=== PATIENT | female | born 1935 | race Caucasian/White ===

== ENCOUNTER 2018-12-20 10:10 | Observation (INO) ==
[~2018-12-20 10:10] MED LIST: DIPRIVAN 1% ONE; FENTANYL ONE; ROBINUL ONE; XYLOCAINE-MPF 2% ONE
[2018-12-20] MEDS ORDERED: NORCURON ONE (10:14)
[2018-12-20] MEDS ORDERED: QUELICIN (DOSE) ONE (10:14)
[2018-12-20] MEDS ORDERED: STERILE WATER INJ. ONE (10:14)
[2018-12-20] MEDS ORDERED: ROBINUL ONE ×2 (10:15→12:36)
[2018-12-20] MEDS ORDERED: NEO-SYNEPHRINE ONE (10:17)
[2018-12-20] MEDS ORDERED: SODIUM CHLORIDE 0.9% 10 ML ONE ×2 (10:17→10:18)
[2018-12-20] MEDS ORDERED: LR 1,000 ML ONE ×3 (10:31→13:28)
[2018-12-20] MEDS ORDERED: PEPCID ONE (10:31)
[2018-12-20] MEDS ORDERED: KEFZOL 1 GM/D5W 1 GM/50 ML IVPB ONE (10:31)
[2018-12-20] MEDS ORDERED: REGLAN ONE (10:31)
[2018-12-20] MEDS ORDERED: SENSORCAINE-MPF 0.5%/EPI 1:200,000 ONE (11:36)
[2018-12-20] MEDS ORDERED: SODIUM CHLORIDE 0.9% ONE (11:36)
[2018-12-20 11:37] LABS: INR 1.01; PROTIME 14.1 Seconds (11.0-16.0)
[2018-12-20] MEDS ORDERED: NIMBEX ONE (12:03)
[2018-12-20] MEDS ORDERED: DIPRIVAN 1% ONE (12:24)
[2018-12-20] MEDS ORDERED: NEOSTIGMINE ONE (12:36)
[2018-12-20] MEDS ORDERED: ZOFRAN ONE (12:36)
[2018-12-20] MEDS ORDERED: DECADRON ONE (12:36)
--- NOTE | 2018-12-20 13:16 | Diag Imaging Result Doc PS360 ---
EXAM: OPERATIVE CHOLANGIOGRAM HISTORY: GALLBLADDER DX TECHNIQUE: Intraoperative cholangiogram, two views COMPARISON: None. FINDINGS: Contrast fills the common bile duct. No stone or stricture. There is a small amount of extravasation at the injection site. IMPRESSION: No stone or stricture. Electronically signed by Jose Medrano 12/20/2018 1:14 PM
--- NOTE | 2018-12-20 13:40 | OPERATIVE NOTE ---
PROCEDURE DATE: 12/20/2018 PREOPERATIVE DIAGNOSIS: Chronic cholecystitis with cholelithiasis. POSTOPERATIVE DIAGNOSIS: Chronic cholecystitis with cholelithiasis. PRINCIPAL PROCEDURE: Laparoscopic cholecystectomy with intraoperative cholangiogram. SURGEON: Christel Aguirre MD. ANESTHESIA: General in addition to local anesthetic. ESTIMATED BLOOD LOSS: 25 mL. DRAINS: None. INDICATIONS: Clemencia Mckeon is an 83-year-old, white female patient Dr. James Fry who has been experiencing abdominal discomfort especially in the upper abdomen right side. Ultrasound documented sludge. It was felt that her gallbladder was symptomatic, and cholecystectomy was recommended. FINDINGS: She had a floppy gallbladder that was chronically inflamed. She had small black stones within it. Her liver appeared to be healthy as did the surface of her bowel. No other intra- abdominal pathology was noted. We did do an intraoperative cholangiogram, which showed free flow of the dye into the duodenum. No evidence of extrahepatic stones or obstruction. No extrahepatic dilatation. DESCRIPTION OF PROCEDURE: The patient was brought to the operating room, placed supine, received general anesthesia, and was intubated. Her abdomen was prepped and draped in a sterile field. I made a small incision below the umbilicus with a 15 blade scalpel. Veress needle was introduced through this incision into the abdomen. Pneumoperitoneum was established. Veress needle was removed. I placed an 11 mm trocar through this incision into the abdomen. The camera was placed through this port, and the abdomen was explored for injury, there was none. Three other trocars were placed along the right costal margin under direct vision of the camera. We placed 11 mm trocar just to the right of the midline and two 5 mm trocars in our midclavicular and anterior axillary lines. Through our most lateral port, the gallbladder was grasped and retracted superiorly along with the right lobe of the liver. Another grasper was used to grab the body of the gallbladder, and the triangle of [place] was bluntly dissected. We identified the cystic artery. A clip was placed distally and 2 proximally. It was divided using hook scissors. The cystic duct was dissected along its length. I placed a clip at the cystic duct gallbladder junction. I made a small incision in the cystic duct using hook scissors and a taut intraoperative cholangiogram catheter was used to perform the cholangiogram with the findings above. Once cholangiogram was completed, we removed the catheter and 2 clips were placed proximally on the cystic duct. We divided the cystic duct between clips using hook scissors. The spatula cautery was used to remove the gallbladder from the liver bed. There was no spillage of stones or bile during this procedure, and I removed the gallbladder through our umbilical incision. I placed the trocar back through this incision, and the area of operation was thoroughly inspected, irrigated, and the irrigation was removed with suction. There was no evidence of ongoing bleeding or bile leak. No drains were left. All trocars removed under direct vision of the camera. The pneumoperitoneum was allowed to dissipate. I used a [id number] 2- 0 Vicryl stitch to reapproximate the fascia below the umbilicus. All skin was closed with 4-0 Monocryl subcuticular stitches. Steri-Strips were applied. She tolerated the procedure well with plans for her to go the recovery room, and then be admitted overnight. cc: MD James Prajapati MD
[2018-12-20] MEDS ORDERED: MORPHINE ONE (14:24)
[2018-12-20] MEDS ORDERED: XYLOCAINE-MPF 2% ONE (14:26)
[2018-12-20] MEDS ORDERED: LR 1,000 ML IV SCH (17:45)
[2018-12-20] MEDS ORDERED: NORCO-7.5 PO PRN (17:45)
[2018-12-20] MEDS ORDERED: ZOFRAN IV PRN (17:45)
[2018-12-20] MEDS ORDERED: LIPITOR PO SCH (21:00)
[2018-12-20] MEDS ORDERED: CYMBALTA PO SCH (21:00)
[2018-12-20] MEDS: PERIDEX MT SCH (22:42)
[2018-12-20] MEDS: NORVASC PO SCH (22:42)
[2018-12-21 07:48] VITALS: BP 116/42
[2018-12-21] MEDS ORDERED: SYNTHROID PO SCH (09:00)
[2018-12-21] MEDS ORDERED: PREVACID SOLUTAB PO SCH (09:00)
[2018-12-21] MEDS ORDERED: TOPROL XL PO SCH (09:00)
[2018-12-21] MEDS: PERIDEX MT SCH (10:27)
[2018-12-21] MEDS: NORVASC PO SCH (10:28)
== END 2018-12-21 10:56 | disposition home or self-care (01) ==
LOC: OR 10:10 → 4N 13:25 → INTOOBSV 13:25
PROVIDERS: ADMIT Surgery; ATTEND Surgery
CPT/HCPCS: 74300; 85610; 88304; 94799; A9270; C1751; J0330; J0690; J1100; J2270; J2370; J2405; J3010; J7120; Q9966; Q9967

== ENCOUNTER 2019-01-01 11:35 | Inpatient (IN) ==
[2019-01-01] MEDS ORDERED: TYLENOL PO PRN (13:43)
[2019-01-01] MEDS ORDERED: ZOFRAN IV PRN (13:43)
[2019-01-01] MEDS ORDERED: NS 1,000 ML IV SCH (13:45)
[2019-01-01] MEDS: MAXIPIME 1 GM in NS 50 ML IV SCH (14:31)
[2019-01-01 17:01] LABS: BASO# 0.03 X1000 (0.0-0.2); BASO% 0.4 % (0.0-0.8); EOS# 0.13 X1000 (0.0-0.7); EOS% 1.8 % (0.0-10.0); HEMATOCRIT 32.6 % (37.0-47.0); HEMOGLOBIN 10.4 g/dL (12.0-16.0); IMM GRAN# 0.13 X1000 (0.0-0.04); IMM GRAN% 1.8 % (0.0-0.5); LYMPH# 1.75 X1000 (1.2-3.4); LYMPH% 23.9 % (20.5-51.1); MCH 32.5 PG (27-31); MCHC 31.9 g/dL (33-37); MCV 101.9 FL (81-99); MONO% 13.7 % (1.7-9.3); MPV 9.6 FL (7.4-10.4); NEUT# 4.27 X1000 (1.4-6.5); NEUT% 58.4 % (42.2-75.2); PLT 514 X1000 (130-400); RDW 18.1 % (11.5-14.5); WBC 7.31 X1000 (4.8-10.8)
[2019-01-01 17:17] LABS: EOS 2 % (1-10); LYMPHS 24 % (21-51); MONO 14 % (1-9); SEGS 56 % (42-75); STOMATOCYTES 1+
[2019-01-01 17:18] LABS: OVALOCYTES 1+
[2019-01-01 17:21] LABS: ALB/GLOB RATIO 1.7; ALBUMIN 4.3 g/dL (3.5-5.0); CALCIUM 9.5 mg/dL (8.8-10.2); CREATININE 1.2 mg/dL (0.5-0.9); POTASSIUM 4.8 mmol/L (3.5-5.1); TOTAL BILIRUBIN 0.39 mg/dL (0.20-1.00); TOTAL PROTEIN 6.9 g/dL (6.3-8.3)
[2019-01-01 17:45] LABS: URINE SOURCE CLEAN CATCH
[2019-01-01 17:48] LABS: BILIRUBIN URINE NEGATIVE (NEGATIVE); BLOOD URINE NEGATIVE (NEGATIVE); COLOR STRAW; GLUCOSE URINE NEGATIVE (NEGATIVE); KETONE URINE NEGATIVE (NEGATIVE); LEUKOCYTES URINE NEGATIVE (NEGATIVE); NITRITE URINE NEGATIVE (NEGATIVE); PH URINE 6.5; PROTEIN URINE NEGATIVE (NEGATIVE); TURBIDITY URINE CLEAR (CLEAR); UROBILINOGEN URINE NORMAL (NORMAL)
[2019-01-01 17:50] LABS: UR EPITHELIAL CELLS <10 /HPF (<10); URINE BACTERIA NEGATIVE /HPF; URINE RBC <10 /HPF (<10); URINE WBC <10 /HPF (<10)
[2019-01-01] MEDS ORDERED: NORVASC PO PRN (19:21)
[2019-01-01] MEDS: COUMADIN PO SCH (20:52)
[2019-01-01] MEDS: LIPITOR PO SCH (20:52)
[2019-01-01] MEDS ORDERED: CYMBALTA PO SCH (21:00)
[2019-01-01] MEDS: BETAPACE PO SCH (21:30)
[2019-01-01] MEDS: CYMBALTA PO SCH (21:30)
--- NOTE | 2019-01-01 21:58 | HISTORY AND PHYSICAL ---
PRIMARY CARE PHYSICIAN: Dr. James Fry. CHIEF COMPLAINT: Refractory urinary tract infection. HISTORY OF PRESENT ILLNESS: An 83-year-old white female, with a complicated past medical history, who presents for evaluation of above-mentioned symptoms. Current history of present illness began on Tuesday. At that time, patient presented to my office with urinary frequency and dysuria. A urinalysis was performed. Treatment with Keflex therapy was initiated. Unfortunately, the patient's cultures returned positive for a resistant Pseudomonas. On Tuesday evening, patient was contacted. The only oral antibiotic with adequate sensitivity was levofloxacin. Unfortunately, this was not an option secondary to her current treatment with sotalol. Arrangements were made for her to go to the ER every 12 hours for cefepime therapy. The patient was treated on Tuesday evening and Tuesday morning. Unfortunately, on Tuesday evening, the patient did not receive a dosage. She received 2 doses yesterday. This morning, patient states that she is having difficulty getting to and from the emergency department 12 hours apart. She also is having difficulty maintaining adequate IV sites. The patient contacted our office with further concern. For this reason, the patient will be admitted to the hospital for further IV antibiotic intervention. At the current time, patient denies nausea, vomiting, shortness of breath, chest pain, dysuria, hematuria, pyuria, and GI disturbance. She does note having weakness. PAST MEDICAL HISTORY: 1. Abnormal electrocardiogram with first-degree AV block and intermittent in atrial fibrillation. 2. Anemia. 3. Anxiety. 4. Mild coronary artery disease. 5. History of a lumbar lipoma. 6. Fibrocystic breast disease. 7. Cataracts. 8. Depression. 9. History of multiple ear surgeries. 10. Reflux disease. 11. Hypertension. 12. Fatigue. 13. Incontinence. 14. History of cholelithiasis, status post laparoscopic cholecystectomy. 15. Hyperlipidemia. 16. Hypothyroidism. 17. Irritable bowel syndrome. 18. Anticoagulation. 19. Low back pain. 20. History of a left lower extremity hematoma after total knee arthroplasty in 2014. 21. Obstructive sleep apnea. 22. Osteoarthritis. 23. Paroxysmal atrial fibrillation. 24. Pulmonary hypertension. 25. History of a superficial basal cell carcinoma. 26. History of a solitary pulmonary nodule with benign appearance. 27. Insomnia. 28. History of appendectomy in 1952. 29. History of deep venous thrombosis. CURRENT MEDICATIONS: 1. Acetaminophen 325 mg 2 tablets every 4 hours as needed. 2. Amlodipine 2.5 mg twice daily as needed for systolic blood pressure greater than 140. 3. Atorvastatin 20 mg at bedtime. 4. Calcium plus vitamin D daily. 5. Centrum Silver daily. 6. Coumadin 5 mg on Tuesday, Tuesday, Tuesday, and Tuesday evenings, and 7.5 mg on Tuesday, , and Tuesday evenings. 7. Vitamin B12 1000 mcg IM monthly. 8. Cymbalta 60 mg twice daily. 9. Folic acid 1 mg daily. 10. Lasix 20 mg as needed. 11. Levothyroxine 100 mcg daily. 12. MiraLAX as needed. 13. Pantoprazole 40 mg daily. 14. Sotalol 80 mg 1/2 tablet twice daily. 15. Spironolactone 25 mg 1/2 tablet daily. 16. Toviaz 4 mg as needed. ALLERGIES: Patient states she is allergic to lisinopril which causes hyponatremia, Lovenox which causes excessive bleeding, and sulfa which causes swelling. SOCIAL HISTORY: The patient denies tobacco use. She occasionally uses alcohol. She denies illicit drug use. She is retired from [employer]. She enjoys yard work. She exercises intermittently. FAMILY HISTORY: Patient's father passed at age 70 secondary to complications of leukemia. Patient's mother passed at age 97 secondary to complications of a traumatic fall with an intracranial bleed. REVIEW OF SYSTEMS: A 12 point review of systems was performed. Pertinent positives and negatives are noted in the History of Present Illness.. PHYSICAL EXAMINATION: VITAL SIGNS: Temperature 98.2 degrees, heart rate 72, respirations 18, blood pressure is 171/68. GENERAL: Well nourished, well developed, no acute distress. HEENT: Normocephalic, atraumatic. Pupils equal, round, reactive to light. Extraocular muscles intact. Sclerae anicteric. [place] conjunctivae. Oral and nasopharynx clear without exudate. NECK: Supple. No lymphadenopathy. No thyromegaly. No bruits auscultated. CARDIOVASCULAR: Regular rate and rhythm. No significant murmurs, rubs, or gallops. PULMONARY: Clear to auscultation bilaterally. ABDOMEN: Soft, nontender, nondistended. Positive bowel sounds. EXTREMITIES: Moves all extremities well. No significant clubbing, cyanosis, or edema. NEUROLOGIC: Cranial nerves 2 through 12 grossly intact. Motor and sensory grossly intact. PSYCHOLOGIC: Examination is appropriate. LABORATORY DATA: White blood cell count 7.31, hemoglobin 10.4, hematocrit 32.6, platelet count 514,000. Sodium 141, potassium 4.8, chloride 103, bicarb 26, BUN 22, creatinine 1.2, glucose 88, calcium 9.5, total bilirubin 0.39, total protein 6.9, albumin 4.3, alkaline phosphatase 47, AST 20, ALT 13. Urinalysis returned negative. ASSESSMENT AND PLAN: An 83-year-old white female, with past medical history as noted, who presents for evaluation of outpatient failure to manage resistant urinary tract infection. The patient will be admitted to the hospital for full evaluation and management. 1. Admit to General Medicine. 2. Urinary tract infection. As above, patient's recent culture grew a resistant pseudomonas. Unfortunately, the only oral medication given an option was levofloxacin. The patient is unable to take this secondary to interaction with sotalol. For now, we will continue cefepime therapy. We will discuss duration of therapy with Dr. Clemons. We will tentatively treat for 7 days. 3. Hypertension. We will continue patient on her home regimen. 4. Anxiety/depression. We will continue patient on Cymbalta therapy. 5. Reflux disease. We will continue pantoprazole therapy. 6. Hyperlipidemia. We will continue atorvastatin therapy. 7. Hypothyroidism. We will continue patient on replacement. 8. Anticoagulation. We will check an INR. 9. Fluid, electrolytes, nutrition. We will monitor electrolytes. Normal saline at KVO. Regular diet. 10. Prophylaxis. Patient will be continued on Coumadin therapy. cc: James Fry MD
[2019-01-01 22:03] LABS: INR 2.43; PROTIME 28.2 Seconds (11.0-16.0)
[2019-01-02] MEDS: MAXIPIME 1 GM in NS 50 ML IV SCH ×3 (03:48→22:18)
[2019-01-02] MEDS: PROTONIX PO SCH (06:07)
[2019-01-02] MEDS: SYNTHROID PO SCH (06:08)
[2019-01-02] MEDS: ALDACTONE PO SCH (09:22)
[2019-01-02] MEDS: BETAPACE PO SCH ×2 (09:23→22:19)
[2019-01-02] MEDS: CYMBALTA PO SCH ×2 (09:23→22:19)
[2019-01-02] MEDS: FOLIC ACID PO SCH (09:24)
--- NOTE | 2019-01-02 19:59 | PROGRESS NOTE ---
DATE: 01/02/2019 SUBJECTIVE: Upon arrival this morning, patient stated she felt reasonably well. Thus far, the patient has tolerated IV intervention for her urinary tract infection. Through the day, patient states she did reasonably well. Her p.o. intake has been adequate. She has been up in chair. This evening, patient states she continues to feel reasonably well. I discussed case with Dr. Clemons. Five days of IV antibiotics were recommended. OBJECTIVE: T-max 98 degrees, heart rate 68 to 75, respirations 16 to 18, blood pressure 137 to 171 over 64 to 69.General: Well nourished, well developed, no acute distress. Cardiovascular: Regular rate and rhythm. No significant murmurs, rubs, or gallops. Pulmonary: Clear to auscultation bilaterally. Abdomen: Soft, nontender, nondistended. Positive bowel sounds. Extremities: Moves all extremities well. No significant clubbing, cyanosis, or edema. Dermatologic: Evaluation reveals no evidence of rash. LABORATORY DATA: None. ASSESSMENT AND PLAN: 1. Urinary tract infection-culture grew Pseudomonas. Unfortunately, no oral antibiotics were an option. We will continue patient on cefepime therapy for a total of 5 days. 2. Hypertension-we will continue patient on her home regimen. Blood pressures are reasonably controlled. 3. Anxiety/depression-symptoms are reasonably controlled with Cymbalta therapy. 4. Reflux disease-we will continue patient on pantoprazole therapy. 5. Hyperlipidemia-patient is tolerating atorvastatin therapy. This will be continued. 6. Hypothyroidism-we will continue patient on replacement. 7. Anticoagulation-patient is therapeutic with Coumadin therapy. 8. Disposition-at this point, patient continues to require [facility] care in a hospital setting. We will plan discharge home once appropriate. cc: James Fry MD
[2019-01-02] MEDS ORDERED: COUMADIN PO SCH (21:00)
[2019-01-02] MEDS: LIPITOR PO SCH (22:20)
[2019-01-03] MEDS: MAXIPIME 1 GM in NS 50 ML IV SCH ×3 (05:53→20:43)
[2019-01-03] MEDS: PROTONIX PO SCH ×2 (05:53→06:37)
[2019-01-03] MEDS: SYNTHROID PO SCH ×2 (05:54→06:37)
[2019-01-03] MEDS: ALDACTONE PO SCH (09:13)
[2019-01-03] MEDS: CYMBALTA PO SCH ×2 (09:14→20:44)
[2019-01-03] MEDS: FOLIC ACID PO SCH (09:14)
[2019-01-03] MEDS: BETAPACE PO SCH ×2 (09:15→20:44)
[2019-01-03] MEDS: COUMADIN PO SCH (20:44)
[2019-01-03] MEDS: LIPITOR PO SCH (20:44)
--- NOTE | 2019-01-03 20:48 | PROGRESS NOTE ---
DATE: 01/03/2019 SUBJECTIVE: Upon my arrival this morning, the patient was resting comfortably. Thus far, the patient has tolerated IV cefepime quite well. This evening, the patient continues to feel well. She is tolerating p.o. She denies nausea, vomiting, shortness of breath, or chest discomfort. OBJECTIVE: Vital signs: T-max 98 degrees, heart rate 70 to 75, respirations 16 to 17, blood pressure 126 to 152 over 54 to 65. General: Well nourished, well developed, no acute distress. Cardiovascular: Regular rate and rhythm. No significant murmurs, rubs, or gallops. Pulmonary: Clear to auscultation bilaterally. Abdomen: Soft, nontender, nondistended. Positive bowel sounds. Extremities: Moves all extremities well. No significant clubbing, cyanosis, or edema. Dermatologic: No evidence of rash. LABORATORY DATA: None. ASSESSMENT AND PLAN: 1. Urinary tract infection. -- As described previously, culture returned positive for Pseudomonas. The patient is currently being treated with cefepime for a total of 5 days. She will complete this tomorrow morning. If the patient continues to well, we will plan discharge at that time. 2. Hypertension. -- The patient's blood pressure is reasonably controlled on her home regimen. 3. Anxiety/depression. -- We will continue Cymbalta therapy as symptoms are controlled. 4. Reflux disease. -- We will continue the patient on pantoprazole therapy as symptoms are controlled. 5. Hyperlipidemia. -- We will continue home dose of atorvastatin therapy. 6. Hypothyroidism. -- We will continue the patient on replacement. 7. Anticoagulation. -- The patient was therapeutic on Coumadin as of last lab draw. We will remain aware. 8. Disposition. -- At this point, the patient continues to require [facility] care in a hospital setting. We will plan discharge home once appropriate. cc: James Fry MD
[2019-01-04] MEDS: MAXIPIME 1 GM in NS 50 ML IV SCH ×2 (04:56→12:44)
[2019-01-04] MEDS: SYNTHROID PO SCH (06:35)
[2019-01-04] MEDS: PROTONIX PO SCH (06:35)
[2019-01-04] MEDS: FOLIC ACID PO SCH (09:00)
[2019-01-04] MEDS: CYMBALTA PO SCH (09:00)
[2019-01-04] MEDS: ALDACTONE PO SCH (09:00)
[2019-01-04] MEDS: BETAPACE PO SCH (09:00)
[2019-01-04 13:06] VITALS: BP 110/54
--- NOTE | 2019-01-05 20:10 | DISCHARGE SUMMARY ---
ADMISSION DATE: 01/01/2019 DISCHARGE DATE: 01/04/2019 ADMISSION DIAGNOSIS: Refractory urinary tract infection. DISCHARGE DIAGNOSES: 1. Urinary tract infection, secondary to Pseudomonas. 2. Hypertension, present on arrival. 3. Anxiety/depression, present on arrival. 4. Reflux disease, present on arrival. 5. Hyperlipidemia, present on arrival. 6. Hypothyroidism, present on arrival. 7. Anticoagulation, present on arrival. CONSULTATIONS: None. PROCEDURES: None. HISTORY AND PHYSICAL EXAMINATION: See admit note. PHYSICAL EXAMINATION PRIOR TO DISCHARGE: Vital Signs: Temperature 97.8, heart rate 72, respirations 18, blood pressure is 110/54. General: Well nourished, well developed, no acute distress. Cardiovascular: Regular rate and rhythm. No significant murmurs, rubs, or gallops. Pulmonary: Clear to auscultation bilaterally. Abdomen: Soft, nontender, nondistended. Positive bowel sounds. Extremities: Moves all extremities well. No significant clubbing, cyanosis, or edema. Dermatologic: Evaluation reveals no evidence of rash. LABORATORY DATA: Prior to discharge: None. HOSPITAL COURSE: Patient was admitted as per history and physical examination. Hospital course per condition is as follows: 1. Urinary tract infection: Upon admission, the patient had a positive urine culture for Pseudomonas. The only oral antibiotic acceptable for treatment was levofloxacin. Unfortunately, this interacted with her sotalol. The patient was initially treated as an outpatient with cefepime q.12 hours. Unfortunately, this proved to be too difficult. The patient was placed as an inpatient. Cefepime q.8 hours was initiated. Patient tolerated this well while hospitalized. At time of discharge, she was asymptomatic. 2. Hypertension: Patient was maintained on her home medications while hospitalized. Blood pressures remained controlled. 3. Anxiety/depression: Patient was continued on Cymbalta therapy. She had no exacerbations while hospitalized. 4. Reflux disease: Patient was continued on pantoprazole therapy. Symptoms remained controlled. 5. Hyperlipidemia: The patient was continued on atorvastatin therapy. 6. Hypothyroidism: Patient was continued on replacement while hospitalized. She denied symptoms consistent with hyper- or hypothyroidism. 7. Anticoagulation: Patient was continued on Coumadin therapy while hospitalized. DISCHARGE CONDITION: Good. DISPOSITION: Discharged to home. MEDICATIONS: 1. Sotalol 40 mg twice daily. 2. Coumadin 5 mg nightly on Tuesday, Tuesday, Tuesday, and Tuesday, and 7.5 mg on Tuesday, , and Tuesday. 3. Duloxetine 60 mg twice daily. 4. Folic acid 1 mg daily. 5. Tylenol 650 mg every 4 hours as needed. 6. Spironolactone 12.5 mg daily. 7. Pantoprazole 40 mg daily. 8. Levothyroxine 100 mcg daily. 9. Atorvastatin 20 mg at bedtime. 10. Amlodipine 2.5 mg twice daily as needed for systolic blood pressure greater than 140. FOLLOWUP: Patient is to follow up with me in approximately 1 to 2 weeks. cc: James Fry MD
== END 2019-01-04 14:11 | disposition home or self-care (01) | DRG 690 ==
LOC: DIRADM 11:35 → 3N 13:07
PROVIDERS: ADMIT Internal Medicine; ATTEND Internal Medicine
CPT/HCPCS: 80053; 81001; 85025; 85610; 96365; A9270; J0692; J7030

== ENCOUNTER 2019-07-25 13:03 | Inpatient (IN) ==
[2019-07-25] MEDS ORDERED: NORVASC PO PRN (13:38)
[2019-07-25] MEDS ORDERED: MAXIPIME 2 GM in NS 100 ML IV SCH ×2 (13:38→13:45)
[2019-07-25] MEDS: NS 1,000 ML IV SCH (14:17)
[2019-07-25 14:30] LABS: INR 2.7; PROTIME 29.4 Seconds (11.0-16.0)
[2019-07-25 14:33] LABS: BASO# 0.02 X1000 (0.0-0.2); BASO% 0.3 % (0.0-0.8); EOS# 0.07 X1000 (0.0-0.7); EOS% 1.1 % (0.0-10.0); HEMATOCRIT 31.9 % (37.0-47.0); HEMOGLOBIN 10.1 g/dL (12.0-16.0); IMM GRAN# 0.09 X1000 (0.0-0.04); IMM GRAN% 1.4 % (0.0-0.5); LYMPH# 1.47 X1000 (1.2-3.4); LYMPH% 22.1 % (20.5-51.1); MCHC 31.7 g/dL (33-37); MCV 104.2 FL (81-99); MONO# 0.67 X1000 (0.11-0.59); MONO% 10.1 % (1.7-9.3); MPV 9.3 FL (7.4-10.4); NEUT# 4.33 X1000 (1.4-6.5); PLT 525 X1000 (130-400); RBC 3.06 XMIL (4.2-5.4); RDW 18.6 % (11.5-14.5); WBC 6.65 X1000 (4.8-10.8)
[2019-07-25 14:47] LABS: ALB/GLOB RATIO 1.8; ALBUMIN 4.2 g/dL (3.5-5.0); CALCIUM 9.5 mg/dL (8.8-10.2); CREATININE 1.3 mg/dL (0.5-0.9); POTASSIUM 4.4 mmol/L (3.5-5.1); TOTAL BILIRUBIN 0.68 mg/dL (0.20-1.00); TOTAL PROTEIN 6.5 g/dL (6.3-8.3)
[2019-07-25 15:00] LABS: ANISOCYTOSIS 2+; LYMPHS 28 % (21-51); MONO 6 % (1-9); SEGS 66 % (42-75)
[2019-07-25 16:38] LABS: URINE SOURCE CLEAN CATCH
[2019-07-25 16:48] LABS: BILIRUBIN URINE NEGATIVE (NEGATIVE); BLOOD URINE NEGATIVE (NEGATIVE); COLOR YELLOW; GLUCOSE URINE NEGATIVE (NEGATIVE); KETONE URINE NEGATIVE (NEGATIVE); LEUKOCYTES URINE NEGATIVE (NEGATIVE); NITRITE URINE NEGATIVE (NEGATIVE); PH URINE 6.5; PROTEIN URINE NEGATIVE (NEGATIVE); SP GRAVITY URINE 1.013; TURBIDITY URINE CLEAR (CLEAR); UROBILINOGEN URINE NORMAL (NORMAL)
[2019-07-25 16:51] LABS: UR EPITHELIAL CELLS <10 /HPF (<10); URINE BACTERIA NEGATIVE /HPF; URINE RBC <10 /HPF (<10); URINE WBC <10 /HPF (<10)
[2019-07-25] MEDS: PRISTIQ ER PO SCH (17:20)
[2019-07-25] MEDS: FOLIC ACID PO SCH (17:20)
[2019-07-25] MEDS: TYLENOL PO PRN ×2 (17:38→22:32)
--- NOTE | 2019-07-25 18:49 | HISTORY AND PHYSICAL ---
PRIMARY CARE PHYSICIAN: Dr. James Fry CHIEF COMPLAINT: Fatigue, nausea, vomiting. HISTORY OF PRESENT ILLNESS: An 84-year-old, white female, with a very complicated past medical history, presents for evaluation of above-mentioned symptoms. Pertinent history of present illness began on July 09. At that time, patient developed dysuria while on vacation. Unfortunately, she was not close to a pharmacy or a physician's office. The patient treated her symptoms with hydration. Upon returning home on Tuesday, patient contacted me on- call. As this was after hours, I instructed the patient to begin Keflex as she had a prescription at home. Since that time, thereafter, patient's dysuria and urinary frequency improved, but did not resolve. She was ultimately seen in clinic. Urinalysis was performed which was largely unremarkable. Urine culture, however, grew 10,000 to 20,000 colony-forming units of Pseudomonas. Because of this finding and inability to use oral antibiotics secondary to interaction with sotalol, Dr. Clemons was consulted for IV intervention. PICC line placement was arranged. Unfortunately, her INR remained supratherapeutic. This morning, patient had her INR drawn again. INR returned at 3.3. Upon discussion, patient noted a significant decline in her overall condition. She complained of intractable nausea and vomiting this morning, along with chills and progressive fatigue. She denied fever, shortness of breath, cough, or congestion. Because of her progressive symptoms and need to initiate IV antibiotic intervention, patient will be admitted to the hospital for full evaluation and management. Of note, patient denies cardiac symptoms including chest pains and palpitations. She does note having some constipation, but denies diarrhea, hematochezia, or melena. PAST MEDICAL HISTORY: 1. Abnormal electrocardiogram with longstanding left ventricular hypertrophy and first-degree AV block. 2. Chronic anemia. 3. Anxiety. 4. Mild coronary artery disease per left heart catheterization in 2007. 5. History of a lumbar lipoma. 6. Fibrocystic breast disease. 7. Bilateral cataract removal in the early . 8. Depression. 9. History of multiple episodes of otitis media with associated hearing loss. 10. Reflux disease. 11. History of an esophageal stricture requiring multiple dilations. 12. Hypertension. 13. Chronic fatigue. 14. Stress incontinence, followed by Dr. Lorenz. 15. History of a dysfunctional gallbladder, status post laparoscopic cholecystectomy in December 2018. 16. Hyperlipidemia. 17. Hypothyroidism. 18. Irritable bowel syndrome. 19. Chronic anticoagulation. 20. Low back pain. 21. History of mild valvular heart disease. 22. History of a left lower extremity hematoma associated with a deep venous thrombosis requiring IVC filter placement. 23. Obstructive sleep apnea. 24. Osteoarthritis. 25. Paroxysmal atrial fibrillation. 26. Moderate pulmonary hypertension. 27. Family history of ischemic heart disease. 28. History of a superficial basal cell carcinoma. 29. History of a pulmonary nodule ultimately diagnosed as benign. 30. Thrombocytosis, followed by Dr. Whitlock. 31. Insomnia. 32. History of appendectomy in 195. CURRENT MEDICATIONS: 1. Acetaminophen 325 mg 2 tablets every 4 hours as needed. 2. Amlodipine 2.5 mg twice daily as needed for systolic blood pressure greater than 140. 3. Atorvastatin 20 mg at bedtime. 4. Calcium with vitamin D once a day. 5. Coumadin 5 mg on Tuesday, Tuesday, Tuesday, and Tuesday evening, and 7.5 mg on Tuesday, , and Tuesday evenings. 6. Vitamin B12, 1000 mcg monthly. 7. Folic acid 1 mg daily. 8. Levothyroxine 100 mcg daily. 9. MiraLAX as needed. 10. Pantoprazole 40 mg daily. 11. Sotalol 80 mg twice daily. 12. Spironolactone 25 mg 1/2 tablet daily. 13. Toviaz 4 mg daily as needed. ALLERGIES: The patient states she is allergic to lisinopril which caused hyponatremia, Lovenox which caused hypersensitivity and excess bleeding, and sulfa which caused swelling. SOCIAL HISTORY: Patient denies tobacco and illicit drug use. She occasionally uses alcohol. She is retired from [employer]. She exercises intermittently. FAMILY HISTORY: Patient's father passed at age 70, secondary to complications of leukemia. Patient's mother passed at age 97, secondary to a traumatic fall resulting in an intracranial bleed. REVIEW OF SYSTEMS: A 12-point review of systems was performed. Pertinent positives and negatives noted in history of present illness. PHYSICAL EXAMINATION: VITAL SIGNS: Temperature 97.5 degrees, heart rate 82, respirations 16, blood pressure is 104/63. GENERAL: Ill appearing, no acute distress. HEENT: Normocephalic, atraumatic. Pupils equal, round, reactive to light. Extraocular muscles intact. Sclerae anicteric. [place] conjunctivae. Oral and nasopharynx clear without exudate. NECK: Supple. No lymphadenopathy. No thyromegaly. No bruits auscultated. CARDIOVASCULAR: Regular rate and rhythm. No significant murmurs, rubs, or gallops. PULMONARY: Clear to auscultation bilaterally. ABDOMEN: Soft, nontender, nondistended. Positive bowel sounds. EXTREMITIES: Moves all extremities well. No significant clubbing, cyanosis, or edema. NEUROLOGIC: Cranial nerves 2-12 grossly intact. Motor and sensory grossly intact. PSYCHOLOGIC: Appropriate. LABORATORY DATA: White blood count 6.65, hemoglobin 10.1, hematocrit 31.9, platelet count is 525,000. PT 29.4, INR is 2.70. CMP is pending. ASSESSMENT AND PLAN: An 84-year-old, white female, with a very complicated past medical history as noted, presents for evaluation of intractable nausea, vomiting, and fatigue. In the setting of a known pseudomonal urinary tract infection requiring IV antibiotics, it is felt the patient will be most effectively treated initially as an inpatient followed by outpatient IV antibiotics once her condition has stabilized. 1. Admit to General Medicine. 2. Pseudomonal urinary tract Infection. As above, patient has documented disease. We attempted to place a PICC line as an outpatient, however, her INR remains supratherapeutic. With a decline in her overall functional status and the development of nausea and vomiting, it was felt this likely represented symptomatic disease. We will place patient as an inpatient. We will start patient on cefepime 2 g every 12 hours. We will initiate hydration. Once able, we will plan to transition to a PICC line and potentially discharge home on home IV antibiotics. 3. Intractable nausea and vomiting. This likely is a consequence of her underlying infection. We will remain aware. This also could be secondary to her recently discontinuing Cymbalta therapy. We will address this as described below. We will treat patient with as-needed antiemetic agents. 4. Fatigue. The patient's energy level is profoundly low. This likely is multifactorial, but exacerbated with her acute infection. We will treat this as above. 5. Significant low back pain. This has increased recently. She currently is being evaluated by Dr. Shabazz. Recent MRI of the lumbar spine suggested multilevel disease. We discussed initiating Lyrica at her most recent appointment. At this point, I feel we must resume an SNRI as she may be having some withdrawals from this. Once we have this stabilized, we will consider initiating Lyrica therapy. Follow up with Dr. Shabazz has been arranged. 6. Anxiety/depression. As above, she recently ran out of her Cymbalta. We have discussed transitioning from Cymbalta to Pristiq in the recent past. As she is out of medications and potentially exhibiting symptoms associated with abrupt withdrawal, we will start patient on Pristiq while in the hospital. We will follow this. 7. Reflux disease. We will continue patient on home medications. We will encourage aspiration precautions. 8. Hypertension. We will continue patient on home medications. 9. Hypothyroidism. We will continue patient on replacement. 10. Hyperlipidemia. We will continue patient on atorvastatin therapy. 11. Anticoagulation. At this point, we will hold patient's Coumadin. Once INR is less than 2.0, we will plan to place a PICC line. 12. Paroxysmal atrial fibrillation. We will follow patient on telemetry. We will continue sotalol therapy. 13. Fluid, electrolytes, nutrition. We will monitor electrolytes. Normal saline at 50 mL an hour. Regular diet. 14. Prophylaxis. Patient is supratherapeutic on Coumadin. cc: James Fry MD
[2019-07-25] MEDS ORDERED: BETAPACE PO SCH (21:00)
[2019-07-25] MEDS: LIPITOR PO SCH (22:33)
[2019-07-25] MEDS: BETAPACE PO SCH (22:33)
[2019-07-26] MEDS: MAXIPIME 2 GM/NS 2 GM/100 ML IVPB IV SCH ×2 (04:26→15:34)
[2019-07-26] MEDS: PROTONIX PO SCH (06:35)
[2019-07-26] MEDS: SYNTHROID PO SCH (06:36)
[2019-07-26 07:55] LABS: INR 2.17; PROTIME 24.7 Seconds (11.0-16.0)
--- NOTE | 2019-07-26 09:11 | Diag Imaging Result Doc PS360 ---
EXAM: US RENAL 2 (RETROPER) COMPLETE HISTORY: recurrent UTI TECHNIQUE: Renal ultrasound COMPARISON: 11/24/2018 FINDINGS: The right kidney measures only 7.5 x 4.0 x 3.6 cm. The left kidney measures 9.2 x 4.2 x 5.0 cm. Normal renal echotexture and cortical thickness. No stone or hydronephrosis. No renal mass. The urinary bladder is not distended. IMPRESSION: Small right kidney, but otherwise normal renal exam. Electronically signed by Jose Medrano 07/26/2019 9:09 AM
[2019-07-26] MEDS: BETAPACE PO SCH ×2 (09:12→20:17)
[2019-07-26] MEDS: ALDACTONE PO SCH (09:12)
[2019-07-26] MEDS: FOLIC ACID PO SCH (09:12)
[2019-07-26] MEDS: PRISTIQ ER PO SCH (09:13)
[2019-07-26] MEDS: TYLENOL PO SCH ×3 (09:17→17:49)
[2019-07-26] MEDS ORDERED: NS 250 ML ONE (09:25)
[2019-07-26] MEDS: NS 1,000 ML IV SCH ×2 (09:28→23:16)
--- NOTE | 2019-07-26 14:19 | INFECTIOUS DISEASE PROGRESS NO ---
DATE: 07/26/2019 PRESENT ILLNESS: The patient has been having symptomatic recurrent urinary tract infections. Her most recent urinary tract infection is caused by Pseudomonas. She had dysuria with it. She has weakness and lethargy when she has a urinary tract infection. Also, yesterday, she was having nausea and vomiting. MEDICATIONS: The patient is on cefepime 2 grams IV every 12 hours. The patient's dose has been decreased because of her end-stage renal disease. PHYSICAL EXAMINATION: Vital Signs: Temperature is 97.8 degrees, pulse 69, respirations 16, blood pressure 139/55. General: This is a slightly obese elderly female. She looks much better today. She is in no acute distress. Head/Eyes/Ears/Nose/Throat: She can hear my spoken words and see near objects. There is no drainage from her nose or ears. Neck: No meningismus. Lungs: Clear to auscultation. Cardiovascular: Regular heart rate. Abdomen: Soft and nontender. There was some slight bilateral flank tenderness. Neurologic: The patient is awake. She can move her extremities. There is no tremor. Integument: No rash noted. LABORATORY AND X-RAY: Patient does not have a radiographic study done yet. Her CBC shows a white count of 6650, hemoglobin is 10.1, and platelet count is 525,000. Creatinine is 1.3. GFR is 39. Liver function studies are normal. Urine culture grew Pseudomonas. Blood cultures are pending. The patient's latest urinary tract infection, which actually has been going on for weeks now, is due to Pseudomonas. COMORBIDITIES: The patient is elderly. She does have end-stage renal disease. She also has chronic anemia, and she also has obstructive sleep apnea and paroxysmal atrial fibrillation. cc: MD James Chapman MD
[2019-07-26] MEDS ORDERED: BLISTEX MEDICATED BERRY LIP BALM TOP ONE (19:06)
[2019-07-26] MEDS: LIPITOR PO SCH (20:17)
[2019-07-26] MEDS ORDERED: COUMADIN PO SCH (21:00)
--- NOTE | 2019-07-26 22:38 | PROGRESS NOTE ---
DATE: 07/26/2019 SUBJECTIVE: Upon my arrival this morning, patient was resting in bed. Overall, she slept reasonably well. She noted a decrease in her nausea overnight. Throughout the day, patient states she did reasonably well. Her energy level has improved slightly. A PICC line was placed without incident. The patient denies fevers. She continues to have considerable fatigue but denies fevers, chills, nausea, vomiting, shortness of breath or chest discomfort. OBJECTIVE: Vital signs: T-max 97.8 degrees, heart rate 64 to 76, respirations 16-18, blood pressure 119 to 139 over 45 to 50. General: No acute distress. Cardiovascular: Regular rate and rhythm. No significant murmurs, rubs, or gallops. Pulmonary: Clear to auscultation bilaterally. Abdomen: Soft, nontender, nondistended. Positive bowel sounds. Extremities: Moves all extremities well. No significant clubbing, cyanosis, or edema. Dermatologic: Evaluation reveals no evidence of rash. LABORATORY DATA: None. ASSESSMENT AND PLAN: 1. Pseudomonal urinary tract infection--Peripherally inserted central catheter line has been placed. Patient has been initiated on cefepime 2 g every 12 hours. Once the patient is prepared for discharge, we will plan IV intervention as an outpatient. 2. Intractable nausea and vomiting--This likely is a consequence of her infection. The patient has achieved improvement while hospitalized. We will continue antiemetics as necessary. 3. Fatigue--This likely is multifactorial. This evening, patient states her energy level is slightly improved from this morning. We will continue her medical regimen. We will follow this. 4. Significant low back pain--Patient is currently being followed by Dr. Shabazz. We initiated Tylenol 3 times daily while hospitalized. She has noted some improvement in her overall pain. 5. Anxiety/depression--Patient recently self discontinued Cymbalta abruptly. I am concerned that some of her mood lability may be secondary to this. I am also concerned that nausea could also be secondary to abrupt withdrawal. The patient was started on Pristiq therapy yesterday. Thus far, she has tolerated reasonably well. 6. Reflux disease--We will continue home medications and aspiration precautions. 7. Hypertension--Blood pressure is reasonably controlled on her home regimen. 8. Hypothyroidism--We will continue patient on replacement. 9. Hyperlipidemia--We will continue patient on atorvastatin therapy. 10. Anticoagulation--We will resume her Coumadin intervention. 11. Paroxysmal atrial fibrillation--We will follow patient on telemetry. She is treated with sotalol therapy. DISPOSITION: At this point, patient continues to require [facility] care in the hospital setting. We will plan discharge home once appropriate. cc: James Fry MD
[2019-07-27] MEDS: MAXIPIME 2 GM/NS 2 GM/100 ML IVPB IV SCH ×2 (02:48→14:13)
[2019-07-27] MEDS: SYNTHROID PO SCH (05:59)
[2019-07-27] MEDS: PROTONIX PO SCH (05:59)
[2019-07-27] MEDS: FOLIC ACID PO SCH (08:48)
[2019-07-27] MEDS: TYLENOL PO SCH ×2 (08:48→14:13)
[2019-07-27] MEDS: ALDACTONE PO SCH (08:48)
[2019-07-27] MEDS: BETAPACE PO SCH (08:48)
[2019-07-27] MEDS: PRISTIQ ER PO SCH (08:49)
[2019-07-27 12:01] VITALS: BP 130/56
[2019-07-27] MEDS ORDERED: COUMADIN PO SCH (21:00)
--- NOTE | 2019-07-28 18:19 | DISCHARGE SUMMARY ---
ADMISSION DATE: 07/25/2019 DISCHARGE DATE: 07/27/2019 ADMISSION DIAGNOSIS: 1. Fatigue. 2. Nausea. 3. Vomiting. DISCHARGE DIAGNOSES: 1. Pseudomonal urinary tract infection. 2. Intractable nausea and vomiting, improved 3. Fatigue, improving. 4. Significant low back pain, improving . 5. Anxiety/depression, improving. 6. Reflux disease, present on arrival. 7. Hypertension, present on arrival. 8. Hypothyroidism, present on arrival. 9. Hyperlipidemia, present on arrival. 10. Anticoagulation, present on arrival. 11. Paroxysmal atrial fibrillation, present on arrival. CONSULTATIONS: Dr. Clemons with Infectious Disease was consulted for further evaluation and management of pseudomonal urinary tract infection. PROCEDURES: A renal ultrasound was performed on 07/25/2019 which revealed a small right kidney but otherwise normal renal examination. HISTORY AND PHYSICAL EXAMINATION: See admit note. PHYSICAL EXAMINATION: Prior to discharge temperature 97.7 degrees, heart rate 71, respirations 15, blood pressure is 130/56. General: Well nourished, well developed, no acute distress. Cardiovascular: Regular rate and rhythm. No significant murmurs, rubs, or gallops. Pulmonary: Clear to auscultation bilaterally. Abdomen: Soft, nontender, nondistended. Positive bowel sounds. Extremities: Moves all extremities well. No significant clubbing, cyanosis, or edema. Dermatologic: Evaluation reveals no evidence of rash. LABORATORY DATA: Prior to discharge. None. HOSPITAL COURSE: The patient was admitted as per history and physical examination. Hospital course per condition is as follows. 1. Pseudomonal urinary tract infection-upon admission, patient was noted to have culture positive pseudomonal urinary tract infection. Unfortunately, patient is currently being treated with sotalol therapy and IV intervention was deemed most appropriate. With the patient's INR being elevated and the development of intractable nausea and vomiting, it was felt inpatient treatment was most appropriate. Patient was started on a peripheral IV. Cefepime therapy was initiated. Dr. Clemons was consulted. With the patient's INR trending downward, a PICC line was placed. Patient will be discharged home with cefepime 2 g every 12 hours for additional 10 days. We will defer management to Dr. Clemons. 2. Intractable nausea and vomiting-this likely was a consequence of her infection. We will keep in mind this also could have been secondary to an abrupt withdrawal of Cymbalta. With treatment of each, patient achieved improvement while hospitalized. At time of discharge, she was tolerating p.o. We will follow this as well. 3. Profound fatigue-this likely was multifactorial, but exacerbated by her urinary tract infection. With treatment of this as well as addressing her anxiety and depression, symptoms improved. We will continue to follow this as an outpatient. 4. Significant low back pain-unfortunately, this continues to be a limiting factor. She currently is being evaluated by Dr. Shabazz. She recently had an MRI which suggested multilevel disk disease. The patient is currently being treated with Tylenol 3 times daily. We will defer management to Dr. Shabazz's discretion. 5. Anxiety/depression-as above, patient recently self-discontinued Cymbalta abruptly. I suspect this was playing a role in her overall condition. While hospitalized, patient was started on Pristiq therapy. We will continue this as an outpatient. We will encourage activity. 6. Reflux disease-symptoms remain controlled on her home medications and aspiration precautions. 7. Hypertension-blood pressure remained adequately controlled on her current regimen. 8. Hypothyroidism-patient was continued on Synthroid replacement while hospitalized. We will follow this as an outpatient. 9. Hyperlipidemia-patient was maintained on atorvastatin therapy while hospitalized. 10. Anticoagulation-the patient's Coumadin was held while hospitalized in order to place peripherally inserted central catheter line. This has been resumed. We will continue her home dosage as an outpatient. 11. Paroxysmal atrial fibrillation-patient was followed on telemetry. She remained on sotalol therapy. DISCHARGE CONDITION: Good. DISPOSITION: Discharge to home. MEDICATIONS: 1. Amlodipine 2.5 mg twice daily as needed for systolic blood pressure greater than 140. 2. Pristiq 50 mg daily. 3. Protonix 40 mg daily at 7 a.m. 4. Tylenol 650 mg 3 times daily. 5. Sotalol 80 mg twice daily. 6. Levothyroxine 100 mcg daily. 7. Atorvastatin 20 mg at bedtime. 8. Coumadin 7.5 mg nightly on Tuesday, and Tuesday and 5 mg nightly on Tuesday, Tuesday, Tuesday and Tuesday. 9. Folic acid 1 mg daily. 10. Spironolactone 12.5 mg daily. 11. Cefepime 2 g IV q.12 hours for [address] Clemons. FOLLOWUP: Patient is to follow with me in approximately 1 to 2 weeks. Patient is to follow with Dr. Clemons as arranged. cc: James Fry MD
== END 2019-07-27 15:18 | disposition home health service (06) | DRG 690 ==
LOC: CATH 13:03 → DIRADM 13:04 → EDIPHOLD 13:19 → 3N 16:46
PROVIDERS: ADMIT Internal Medicine; ATTEND Internal Medicine